=== PATIENT | female | born 1950 | race Caucasian/White ===

== ENCOUNTER 2016-08-19 15:51 | Emergency (ER) | payer MEDICARE, OTHER ==
[~2016-08-19] VITALS: Ht 157.5 cm; Wt 95.0 kg
[2016-08-19 15:53] VITALS: BP 135/97; PULSE 86; RESP 15; TEMP 97.9; O2SAT 95
[2016-08-19] MEDS ORDERED: XARE20TA PO (17:12)
[2016-08-19] MEDS ORDERED: METO50TA PO (17:12)
--- NOTE | 2016-08-19 17:23 | PD ---
HPI Chief Complaint: Allergic/Adverse Reaction Time Seen by Provider: 17:15 Travel History International Travel<30 days: No Contact w/Intl Traveler<30days: No Traveled to known affect area: No History of Present Illness HPI 66-year-old female presents for evaluation of possible allergic reaction. The patient reports that she saw Dr. Cheek 5 days ago and was prescribed xarelto and metoprolol. She has been using as prescribed. She woke up this morning with facial swelling. She reports that the swelling is inferior orbital region and cheek region bilaterally. She denies any itching or pain. 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 Carlson. She denies any swelling of lips, tongue, throat, uvula, shortness of breath, rash. She has no other complaints. PFSH Past Medical History Hx Anticoagulant Therapy: Yes (XARELTO) Heart Rhythm Problems: Yes Cardiovascular Problems: Yes (A-FIB, HBP) Diminished Hearing: No Hypertension: Yes Tetanus Vaccination: > 5 Years Influenza Vaccination: No Menopausal: Yes Past Surgical History Section: Yes Gynecologic Surgery: Yes (c section) Social History Alcohol Use: No Tobacco Use: Yes (1 pack per day) Substance Use: No Allergies-Medications (Allergen,Severity, Reaction): Coded Allergies: Penicillin (Verified Allergy, Unknown, rash, 08/19/16) Sulfa (Verified Allergy, Unknown, rash, 08/19/16) Reported Meds & Prescriptions Reported Meds & Active Scripts Active Carvedilol 6.25 Mg Tab 6.25 Mg PO BID Eliquis (Apixaban) 5 Mg Tab 5 Mg PO BID Reported Metoprolol Tartrate 50 Mg Tab 50 Mg PO DAILY Xarelto (Rivaroxaban) 20 Mg Tab 20 Mg PO DAILY Review of Systems Except as stated in HPI: all other systems reviewed are Neg Physical Exam Narrative GENERAL: Well-developed well-nourished female in no acute distress SKIN: Warm and dry. There is some fullness of the soft tissue swelling of the cheeks bilaterally. No rash. HEAD: Atraumatic. Normocephalic. EYES: Pupils equal and round. No scleral icterus. No injection or drainage. ENT: No nasal bleeding or discharge. Mucous membranes pink and moist. No swelling of lips, tongue, throat, uvula. NECK: Trachea midline. No JVD. No lymphadenopathy. No submandibular swelling. CARDIOVASCULAR: Regular rate and rhythm. No murmur appreciated. RESPIRATORY: No accessory muscle use. Clear to auscultation. Breath sounds equal bilaterally. GASTROINTESTINAL: Abdomen soft, non-tender, nondistended. Hepatic and splenic margins not palpable. MUSCULOSKELETAL: No obvious deformities. NEUROLOGICAL: Awake and alert. No obvious cranial nerve deficits. Motor grossly within normal limits. Normal speech. PSYCHIATRIC: Appropriate mood and affect; insight and judgment normal. Data Data Last Documented VS Vital Signs Date Time Temp Pulse Resp B/P Pulse Ox O2 Delivery O2 Flow Rate FiO2 08/19/16 17:07 18 98 Room Air 08/19/16 15:53 97.9 86 135/97 Orders Diphenhydramine Inj (Benadryl Inj) (08/19/16 17:30) Methylprednisolone So Succ Inj (Solumedr (08/19/16 17:30) Apixaban (Eliquis) (08/19/16 17:45) Carvedilol (Coreg) (08/19/16 17:45) MDM Medical Decision Making Medical Screen Exam Complete: Yes Emergency Medical Condition: Yes Medical Record Reviewed: Yes Differential Diagnosis Allergic reaction to medication, angioedema, photosensitivity reaction, erysipelas Narrative Course I discussed the case with Dr. Carlson diamond assorter for Dr. Cheek and he would like his new medications to be changed to carvedilol 6.25 mg twice a day and eliquis 5mg bid, discontinue the metoprolol and xarelto, and he would like to see the patient in his office next week. The patient was given IV Solu-Medrol and Benadryl with no additional symptoms. Discussed these recommendations with the patient who is agreeable. Discussed signs and symptoms of word returning to the emergency room. She is stable for discharge. Diagnosis Primary Impression: Allergic reaction Qualified Code: T78.40XA - Allergic reaction, initial encounter Referrals: Milind Carlson MD Additional Instructions: Follow-up with Dr. Carlson in the next week, call his office to make an appointment. Take the new medication as prescribed. Do not take previously prescribed metoprolol or Xarelto. If you develop any acutely new or worsening symptoms such as swelling lips, tongue, throat, shortness of breath, return to the emergency room. Med/Other Pt SpecificInfo: Prescription(s) given Scripts Carvedilol 6.25 Mg Tab6.25 Mg PO BID #60 TAB Ref 0 Prov:Edgar Kumar MD 08/19/16 Apixaban (Eliquis)5 Mg Tab5 Mg PO BID #60 TAB Ref 0 Prov:Edgar Kumar MD 08/19/16 Disposition: 01 DISCHARGE HOME Condition: Stable Alli Bonilla Aug 19, 2016 17:23
--- NOTE | 2016-08-19 17:28 | PD ---
Physical Exam Narrative Patient was seen and examined with my refinery operator assistant. Data Data Last Documented VS Vital Signs Date Time Temp Pulse Resp B/P Pulse Ox O2 Delivery O2 Flow Rate FiO2 08/19/16 17:07 18 98 Room Air 08/19/16 15:53 97.9 86 135/97 Orders Diphenhydramine Inj (Benadryl Inj) (08/19/16 17:30) Methylprednisolone So Succ Inj (Solumedr (08/19/16 17:30) MDM Supervised Visit with NANCY: Yes Edgar Kumar MD Aug 19, 2016 17:28
[2016-08-19] MEDS ORDERED: diphenhydrAMINE HCL 50 MG/ML VIAL IVP ONE (17:30)
[2016-08-19] MEDS ORDERED: methylPREDNISolone SOD SUCC 125 MG/2 ML VIAL IVP ONE (17:30)
[2016-08-19] MEDS ORDERED: APIX5TAB PO (17:32)
[2016-08-19] MEDS ORDERED: CARV6.252 PO (17:32)
[2016-08-19] MEDS ORDERED: APIXABAN 5 MG TABLET PO ONE (17:45)
[2016-08-19] MEDS ORDERED: CARVEDILOL 6.25 MG TAB PO ONE (17:45)
== END 2016-08-19 18:43 | disposition home or self-care (01) ==
LOC: NEPC 15:51
DX: T45.515A Adverse effect of anticoagulants, initial encounter (principal); T44.7X5A Adverse effect of beta-adrenoreceptor antagonists, initial encounter; I48.91 Unspecified atrial fibrillation; I10 Essential (primary) hypertension; F17.210 Nicotine dependence, cigarettes, uncomplicated; Z88.0 Allergy status to penicillin; Z88.2 Allergy status to sulfonamides; Z79.01 Long term (current) use of anticoagulants
CPT/HCPCS: 96374; 96375; 99283; J1200; J2930